=== PATIENT | female | born 2000 | race Caucasian/White ===

== ENCOUNTER → 2024-11-15 | Outpatient (CLI) | payer OTHER ==
[~2024-11-15] MED LIST: ISOVUE-370 76% 100 ML VIAL ONE
== END ==
LOC: M PLAIMG 08:00
PROVIDERS: ATTEND Otolaryngology
DX: R59.9 Enlarged lymph nodes, unspecified (principal)

== ENCOUNTER 2024-12-16 09:00 | Day surgery (SDC) | payer OTHER ==
[~2024-12-16] VITALS: Ht 165.1 cm; Wt 64.9 kg
[2024-12-16] MEDS ORDERED: MIDAZOLAM INJ 2 MG/2 ML VIAL As Ordered ONE (09:02)
[2024-12-16] MEDS ORDERED: LIDOCAINE 2% 100 MG/5 ML SDV (FOR ANES.) As Ordered ONE (09:03)
[2024-12-16] MEDS ORDERED: dexAMETHasone 4 MG/ML 1 ML VIAL As Ordered ONE (09:03)
[2024-12-16] MEDS ORDERED: KETOROLAC 30 MG/ML 1 ML VIAL As Ordered ONE (09:03)
[2024-12-16] MEDS ORDERED: ACETAMINOPHEN 1000MG/100ML IV BAG As Ordered ONE (09:04)
[2024-12-16] MEDS ORDERED: ONDANSETRON 4MG/2ML VIAL As Ordered ONE (09:04)
[2024-12-16] MEDS ORDERED: FAMOTIDINE 20 MG/2 ML VIAL IVP ONE (09:40)
[2024-12-16] MEDS: LR 1,000 ML IV SCH (10:10)
[2024-12-16] MEDS: SCOPOLAMINE 1MG TRANSDERMAL PATCH TOP ONE (10:10)
[2024-12-16] MEDS ORDERED: ROCURONIUM BROMIDE 50MG/5ML VIAL As Ordered ONE (10:34)
[2024-12-16] MEDS ORDERED: SUGAMMADEX SODIUM 500 MG/5 ML VIAL As Ordered ONE (10:42)
[2024-12-16] MEDS: LIDOCAINE W/EPINEPHrine 1% 20 ML VIAL As Ordered ONE (11:37)
[2024-12-16] MEDS ORDERED: MEPERIDINE 25 MG/ML 1 ML VIAL IV PRN (11:50)
[2024-12-16] MEDS ORDERED: ONDANSETRON 4MG/2ML VIAL IV PRN (11:50)
[2024-12-16 12:30] VITALS: BP 111/64; TEMP 97.6; O2SAT 98
== END 2024-12-16 12:56 | disposition home or self-care (01) ==
LOC: M SDC 09:00
PROVIDERS: ATTEND Otolaryngology
DX: R59.9 Enlarged lymph nodes, unspecified (principal); J45.909 Unspecified asthma, uncomplicated; F17.290 Nicotine dependence, other tobacco product, uncomplicated; Z88.0 Allergy status to penicillin; Z91.018 Allergy to other foods
CPT/HCPCS: 21556; 81025; 88305; J0131; J1100; J1885; J2250; J2405; J3010